=== PATIENT | female | born 1990 ===

== ENCOUNTER 2022-08-01 19:07 | Inpatient (IN) | payer BC, MEDICAID ==
[2022-08-01] MEDS ORDERED: MAG HYDROX/AL HYDROX/SIMETH 30 ML CUP PO PRN (22:48)
[2022-08-01] MEDS ORDERED: MAGNESIUM HYDROXIDE 2,400 MG/10 ML CUP PO PRN (22:48)
[2022-08-01] MEDS ORDERED: ACETAMINOPHEN TAB 325 MG TAB PO PRN (22:48)
[2022-08-01] MEDS ORDERED: diphenhydrAMINE 50 MG/ML 1 ML VIAL IM PRN (22:50)
[2022-08-01] MEDS ORDERED: diphenhydrAMINE 50 MG CAP PO PRN (22:50)
[2022-08-02] MEDS: NICOTINE 14MG/24HR PATCH TRANSDERM SCH (09:39)
--- NOTE | 2022-08-02 14:41 | P.HP ---
Psychiatric H&P - . 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 HPI: Patient presented to the hospital yesterday as a transfer from [facility] in [facility]. Patient was petitioned by her sister and petition stated that patient made statements about jumping off a bridge, apparently has had a "labile mood" at home and also has been having poor sleep for the past few days. Patient was seen taking part in group today and was able to speak to financial underwriter in the office. Patient states that she was petitioned by her sister and her boyfriend because of going through "PTSD and traumas" and also was endorsing going through "huge transitions" in her life. She states that she recently found out that she was in the ER before being transferred to this hospital. She states that she has had several miscarriages in the past and is worried about it. She claims that she isn't having an increase in stress lately and has been feeling "alone". She claims that she had a conversation with her friend and does not know what she said however is denying stating that she was suicidal. She states that her friend told her boyfriend that she wanted to jump off a bridge. She states that she has been dealing with both of her parents being sick and having ongoing health problems. She claims that she is not feeling suicidal today. She claims that she is not getting enough support and help going through "my transition". 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 She was rambling, rationalizing and minimizing her need for hospitalization. She states that she is not interested in taking medications and was also labile and tearful when speaking about her and also being in the hospital. She states that she has been sleeping poorly the past several nights however slept better last night. States that her appetite is fair. Patient denies any suicidal or homicidal ideations intent or plan. At this time patient denies any auditory or visual hallucinations. Patient admits to using no recreational drugs or cigarettes. She states that she does have a history of alcohol abuse however has been sober this year. PAST PSYCHIATRIC HISTORY: Patient states that she has a history of mood disorder and also PTSD and anxiety. Patient denies being on any psychiatric medications. Patient denies any previous psychiatric hospitalizations however does state that she follows up with a therapist since 2019. She claims that she was last psychiatrically hospitalized in February 2018 in [facility] and states that she has been psychiatrically hospitalized a total of 3 times in the past. PMH:currently ALLERGIES: as per EMR CHEMICAL DEPENDENCY HISTORY: as per HPI FAMILY PSYCHIATRIC/SUBSTANCE USE HISTORY: Claims that her father and brother both abuse alcohol SOCIAL HISTORY: Patient was born and raised in [place] [facility], she claims that she completed high school and did a bachelor of social work. 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 She states that she does not have any legal history. She currently lives with her boyfriend and her sister. MENTAL STATUS EXAM: General Appearance: Patient appears to be mildly overweight, several tattoos, wearing glasses, stated age is alert, labile and tearful. Argumentative. Patient appears to have fair hygiene and grooming. Behavior: Patient is seated without any agitated behavior. Labile. Tearful. Speech: Patient's speech is fluent and nonpressured. Rambles. Tangential. Mood/Affect: Patient reports their mood is mainly anxious, affect is congruent Suicidality/Homicidality: Patient denies having any homicidal ideation intent or plan. Denies any suicidal ideations intent or plan Perceptions: Patient denies any visual hallucinations and denies any auditory hallucinations Though content/process: [There is no evidence of any delusional thought content. Thought process is tangential. Rationalizing and minimizing need for treatment. Memory and concentration: AOX3, grossly intact for the purposes of this session. Can spell "WORLD" backwards Judgment and insight: poor STRENGTHS/WEAKNESSES: strength is that patient is resilient. Weakness is that patient has poor judgment and is impulsive INTELLECT: average IMPRESSIONS: Mood disorder, unspecified alcohol use disorder currently in sustained remission PLAN: -Patient is admitted under involuntary status to MHU for stabilization of psychiatric symptoms and safety. Patient has signed medication consent and is placed in patient's chart. A second certification was completed and along with petition will be filed for court. -Medications : Will start patient on Seroquel 25 mg daily at bedtime for mood stabilization/insomnia, can increase this over the weekend if needed. Start Zoloft 50 mg daily for mood/anxiety. -benadryl PRN for agitation/aggression -Patient was informed of the risks, benefits and side effects of the medication and patient verbally consented to taking the medications. Patient signed med consent form and was placed in chart. -Internal Medicine consult to perform medical evaluation and physical. also consulted ORTHOTICS ASSISTANT due to positive test and hx of multiple miscarriages. -NRT - not needed as patient does not smoke -SW on board for discharge planning. Encourage patient to participate in groups to work on coping skills. Will await deferral and court date.
[2022-08-02] MEDS: SERTRALINE 50 MG TAB PO SCH ×2 (16:38→17:17)
[2022-08-02] MEDS ORDERED: QUEtiapine 25 MG TAB PO SCH (21:00)
[2022-08-03 07:10] LABS: Basophils % (A) 0 %; Eosinophils # (A) 0.2 k/uL (0-0.7); Eosinophils % (A) 2 %; HCT 40.6 % (34.0-46.0); HGB 13.4 gm/dL (11.4-16.0); Lymphocytes % (A) 28 %; MCH 25.4 pg (25.0-35.0); MCHC 33.1 g/dL (31.0-37.0); MCV 76.6 fL (80.0-100.0); Mean Platelet Volume 6.1; Microcytosis Slight; Monocytes # (A) 0.6 k/uL (0-1.0); Monocytes % (A) 6 %; Neutrophils # (A) 6.5 k/uL (1.3-7.7); Neutrophils % (A) 62 %; Platelet Count 494 k/uL (150-450); RDW 14.5 % (11.5-15.5); WBC 10.5 k/uL (3.8-10.6)
[2022-08-03 07:22] LABS: ALT 73 U/L (4-34); AST 34 U/L (14-36); African American GFR (CKD) >90 (>60 ml/min/1.73 sqM); Albumin 4.1 g/dL (3.5-5.0); Alkaline Phosphatase 91 U/L (38-126); Anion Gap 9 mmol/L; Blood Urea Nitrogen 11 mg/dL (7-17); Calcium 9.1 mg/dL (8.4-10.2); Carbon Dioxide 27 mmol/L (22-30); Chloride 102 mmol/L (98-107); Glucose 97 mg/dL (74-99); Non-African American GFR(CKD) >90 (>60 ml/min/1.73 sqM); Potassium 3.9 mmol/L (3.5-5.1); Sodium 138 mmol/L (137-145); Total Bilirubin 0.7 mg/dL (0.2-1.3); Total Protein 7.2 g/dL (6.3-8.2)
[2022-08-03] MEDS: SERTRALINE 50 MG TAB PO SCH (09:19)
[2022-08-03] MEDS: NICOTINE 14MG/24HR PATCH TRANSDERM SCH (09:19)
[2022-08-03] MEDS ORDERED: MELATONIN 5 MG TABLET PO PRN (18:31)
--- NOTE | 2022-08-03 18:31 | P.PN ---
Progress Note - Text Progress Note Date: 08/03/22 Interval History: Patient was seen wandering the hallways and was directable and agreeable to speak with food writer. She states that she is happy to speak with a female provider because she has had traumas in the past. She is tangential while describing her history. She states that she had a miscarriage last year and she has been attending grief groups due to this. As result, she says she is happy to have discovered her earlier on in stages recently. She states that while she would like to continue taking current medication, she is a believer in "holistic medicine." She says that she has requested records she would like to keep close tabs on what is being stated. Patient states that she is liking Zoloft and would like to continue it. However, she states that she has become overly sedated into the next day on the Seroquel. She was agreeable with taking melatonin instead. She denies other concerns and reports good appetite. At this time patient denies any suicidal or homicidal ideatios, intent or plan. Patient denies any auditory, visual hallucinations and denies any paranoia or delusions. Patient denies any side effects from the medications and has been compliant with meds. Mental Status Exam: General Appearance: Patient appears to be mildly overweight, several tattoos, wearing glasses, stated age is alert. Patient appears to have fair hygiene and grooming. Behavior: Patient is seated without any agitated behavior. Speech: Patient's speech is fluent and nonpressured. Mood/Affect: Patient reports their mood is mainly anxious, affect is congruent Suicidality/Homicidality: Patient denies having any homicidal ideation intent or plan. Denies any suicidal ideations intent or plan Perceptions: Patient denies any visual hallucinations and denies any auditory hallucinations Though content/process: There is no evidence of any delusional thought content. Thought process is tangential. Rationalizing and minimizing need for treatment. Memory and concentration: AOX3, grossly intact for the purposes of this session. Judgment and insight: poor Assessment Mood disorder, unspecified alcohol use disorder currently in sustained remission PLAN: -Patient is admitted under involuntary status to MHU for stabilization of psychiatric symptoms and safety. Patient has signed medication consent and is placed in patient's chart. A second certification was completed and along with petition will be filed for court. -Medications : Stop Seroquel Start melatonin 5 mg qHS PRN for sleep Continue Zoloft 50 mg daily for mood/anxiety. -benadryl PRN for agitation/aggression -Patient was informed of the risks, benefits and side effects of the medication and patient verbally consented to taking the medications. Patient signed med consent form and was placed in chart. -Internal Medicine consult to perform medical evaluation and physical. also consulted DIRECT CHILL CASTER due to positive test and hx of multiple miscarriages. -NRT - not needed as patient does not smoke -SW on board for discharge planning. Encourage patient to participate in groups to work on coping skills. Will await deferral and court date.
[2022-08-04] MEDS: SERTRALINE 50 MG TAB PO SCH (09:10)
--- NOTE | 2022-08-04 10:24 | P.OBCN ---
History of Present Illness Consult date: 08/04/22 Requesting physician: Luis Magdaleno Reason for consult: other () Chief complaint: History of present illness: This is a 31-year-old 2 para 0010 with a positive test from prior facility. Patient is being seen for mental health concerns and is currently admitted to the mental health unit. Patient states she typically has regular cycles monthly lasting 7 days. Patient states her last menstrual cycle began around July 02 through July 09. Patient denies vaginal bleeding. Patient is known Rh- and she received Mike with her last . Awaiting type and Rh that was drawn last night. Patient is quite concerned as she had a prior miscarriage at around 11 weeks with a twin gestation. Patient states that happened partially 1 year ago. Patient is from the [facility] and states she does have an HUMAN SERVICES SUPERVISOR over there that she has seen consistently. She is currently taking Zoloft 50 mg daily, she is concerned about adding additional medications for mental health concerns given early . Review of Systems Constitutional: Denies chills, Denies fever Cardiovascular: Denies leg edema Respiratory: Denies dyspnea Genitourinary: Reports Past Medical History Past Medical History: Asthma Additional Past Medical History / Comment(s): Hx of 2 miscariages and sports induced asthma History of Any Multi-Drug Resistant Organisms: None Reported Additional Past Surgical History / Comment(s): L lower leg fx with repair Past Anesthesia/Blood Transfusion Reactions: No Reported Reaction Past Psychological History: Bipolar, Depression, PTSD, Schizophrenia Smoking Status: Vaper Past Alcohol Use History: Occasional Past Drug Use History: Marijuana Additional Drug Use History / Comment(s): Uses marijuana occassionally Medications and Allergies Home Medications Medication Instructions Recorded Confirmed Type No Known Home Medications 08/02/22 08/02/22 History Allergies Allergy/AdvReac Type Severity Reaction Status Date / Time No Known Allergies Allergy Verified 08/02/22 03:29 Exam Osteopathic Statement: *. No significant issues noted on an osteopathic structural exam other than those noted in the History and Physical/Consult. Intake and Output 08/03/22 08/04/22 08/04/22 22:59 06:59 14:59 Other: Weight 100 kg Limited exam is done, consultation done in a visitation room, patient appears in no acute distress, breathing appears nonlabored, patient does not appear to be an any discomfort Results Result Diagrams: 05/20/23 06:48 08/03/22 06:48 Assessment and Plan (1) Current Visit: Yes Status: Acute Code(s): Z34.90 - ENCNTR FOR SUPRVSN OF NORMAL , UNSP, UNSP TRIMESTER SNOMED Code(s): 10493450 (2) H/O spontaneous , currently Current Visit: Yes Status: Acute Code(s): O09.299 - SUPRVSN OF PREG W POOR REPRODCTV OR OBSTET HISTORY, UNSP TRI SNOMED Code(s): 528240499 (3) Rh negative status during Current Visit: Yes Status: Acute Code(s): O26.899 - OTH RELATED CONDITIONS, UNSPECIFIED TRIMESTER; Z67.91 - UNSPECIFIED BLOOD TYPE, RH NEGATIVE SNOMED Code(s): 548912640 Plan: 31-year-old , quantitative beta hCG was drawn last evening, 248. Patient states she does have Rh- blood type. We will repeat quantitative beta hCG tomorrow. Discussed with patient levels need to be significant highly higher to be able to visualize heart tones on ultrasound, she states understanding. We will follow labs, she is very desirous of knowing results once they come in tomorrow. We'll consider ultrasound when levels are appropriate if she is still in the hospital at that time. I typically would like them to be around 10,000 to get an accurate dating US, and be able to see heart tones. Plan is discussed with patient and questions are answered. She is understandably nervous/anxious given her prior loss 1 year ago.
--- NOTE | 2022-08-04 16:02 | P.PN ---
Progress Note - Text Progress Note Date: 08/04/22 Interval History: Patient was seen wandering the hallways and was directable and agreeable to speak with business writer. She states that she is happy to speak with a female provider because she has had traumas in the past. She also states that she prefers to not talk in the interview room and prefers to be talking in her own room. Patient continues to be somewhat tangential and states that she is talkative but baseline. She reports that her mood is "good ". She states that she has been attending groups but that she was irritated when she was cut off well in group today. She reports having some difficulty sleeping without the melatonin but says that she slept well after receiving the melatonin. Discussed recommendation of Lamictal but patient states that she is currently hesitant with this due to her current . Discussed that among the mood stabilizers, Lamictal is relatively safer during the . Patient was also seen by FORK TRUCK DRIVER today. Discussed signs and symptoms of jazmin at length with patient although patient continued to interrupt with tangential story lines about her to personal conflict with her . At this time patient denies any suicidal or homicidal ideatios, intent or plan. Patient denies any auditory, visual hallucinations and denies any paranoia or delusions. Patient denies any side effects from the medications and has been compliant with meds. Mental Status Exam: General Appearance: Patient appears to be mildly overweight, several tattoos, wearing glasses, stated age is alert. Patient appears to have fair hygiene and grooming. Behavior: Patient is seated without any agitated behavior. Speech: Patient's speech is fluent and nonpressured. hyperverbal Mood/Affect: Patient reports their mood is mainly anxious, affect is congruent Suicidality/Homicidality: Patient denies having any homicidal ideation intent or plan. Denies any suicidal ideations intent or plan Perceptions: Patient denies any visual hallucinations and denies any auditory hallucinations Though content/process: There is no evidence of any delusional thought content. Thought process is tangential. Rationalizing and minimizing need for treatment. Memory and concentration: AOX3, grossly intact for the purposes of this session. Judgment and insight: poor Assessment Depressive disorder, mixed Alcohol use disorder currently in sustained remission PLAN: -Patient is admitted under involuntary status to MHU for stabilization of psychiatric symptoms and safety. Patient has signed medication consent and is placed in patient's chart. A second certification was completed and along with petition will be filed for court. -Medications : melatonin 5 mg qHS PRN for sleep Continue Zoloft 50 mg daily for mood/anxiety. Consider Lamictal for mood stabilization although patient is currently hesitant with this. Will provide handout on it from [facility] -benadryl PRN for agitation/aggression -Patient was informed of the risks, benefits and side effects of the medication and patient verbally consented to taking the medications. Patient signed med consent form and was placed in chart. -Internal Medicine consult to perform medical evaluation and physical. also consulted ORACLE DATA WAREHOUSE DEVELOPER due to positive test and hx of multiple miscarriages. -NRT - not needed as patient does not smoke -SW on board for discharge planning. Encourage patient to participate in groups to work on coping skills. Will await deferral and court date.
[2022-08-05] MEDS: SERTRALINE 50 MG TAB PO SCH (07:18)
--- NOTE | 2022-08-05 11:12 | P.PN ---
Progress Note - Text Progress Note Date: 08/05/22 Pt is currently on being treated on the MHU, she is early and was transferred from [facility]. she had a quantative BHC on 08/03 243 and repeated today. It did rise appropriately to 521. I did attempt to call with results so she know this is an adequate rise in her hormone level. No one was available to answer the phone as it went unanswered. I will attempt to call again so the patient does get the results. This level is to low to obtain an US, she is aware of this given her early gestational age. It should rise sufficiently in 2 weeks so that she would be able to have a viability US obtained. [facility] it could be done at the hospital. She is known RH neg, and if she has any bleeding rhogam should be administered. I did request a type and RH be obtained She does have an OB on [address] in addition, she cared for her with her recent miscarriage. Will follow along, please reach out with any further concerns regarding this patient
--- NOTE | 2022-08-05 11:22 | P.PN ---
Progress Note - Text Progress Note Date: 08/05/22 Interval Hx: Patient was seen today for psychiatric follow up. Patient was able to speak to loan underwriter in the office today however did request a female dermatologist and dermatopathologist which was present today. Patient continues to ramble at times, hyperverbal. She states that she is doing "fine" however continues to have racing thoughts, multiple complaints. She continues to have multiple concerns about her medications and states that she is worried about the baby's health. She also did state that she is worried about the acuity of the inpatient psychiatric unit and has been mainly staying in her room. She claims that she is not having any depression at this time, continues to have poor sleep at nighttime. She states that she took the Seroquel and felt "too sedated early" and we spoke about other alternatives of medications however patient is agreeable to try the Seroquel again tonight at a low dose however once they get later on in the nighttime and go straight to sleep. She states that she is speaking with her family over the phone who have been supportive to her. She states that she also did speak with the DISPUTE RESOLUTION ANALYST physician over the weekend. At this time she is denying any auditory or visual hallucinations. She is denying any suicidal or homicidal ideations intent or plan. Mental status examination: General Appearance: Patient appears to be mildly overweight, several tattoos, wearing glasses, stated age is alert, labile. less Argumentative. Patient appears to have fair hygiene and grooming. Behavior: Patient is seated without any agitated behavior. not Tearful. Speech: Patient's speech is fluent and nonpressured. Rambles. Tangential. Mood/Affect: Patient reports their mood is mainly anxious, affect is congruent Suicidality/Homicidality: Patient denies having any homicidal ideation intent or plan. Denies any suicidal ideations intent or plan Perceptions: Patient denies any visual hallucinations and denies any auditory hallucinations Though content/process: [There is no evidence of any delusional thought content. Thought process is tangential. Rationalizing and minimizing Memory and concentration: AOX3, grossly intact for the purposes of this session Judgment and insight: poor, mildly improving. IMPRESSIONS: Mood disorder, unspecified alcohol use disorder currently in sustained remission PLAN: -Patient is admitted under involuntary status to MHU for stabilization of psychiatric symptoms and safety. Patient has signed medication consent and is placed in patient's chart. -Medications : restart Seroquel 25 mg daily at bedtime for mood stabilization/insomnia however to be dosed later on at nighttime at 10pm before patient sleeps, continue with Zoloft 50 mg daily for mood/anxiety. spoke with patient about weighing the risk/benefit of medications during her and she was agreeable to take the medication -benadryl PRN for agitation/aggression -NRT - not needed as patient does not smoke -SW on board for discharge planning. Encourage patient to participate in groups to work on coping skills. Will await deferral and court date.
[2022-08-05] MEDS: QUEtiapine 25 MG TAB PO SCH (21:56)
[2022-08-06] MEDS: SERTRALINE 50 MG TAB PO SCH (09:20)
[2022-08-06] MEDS ORDERED: QUEtiapine 25 MG TAB PO PRN (11:40)
--- NOTE | 2022-08-06 12:06 | P.PN ---
Progress Note - Text Progress Note Date: 08/06/22 Interval Hx: Patient was seen today for psychiatric follow up as she was wandering the hallways. She continues to be hyperverbal rambling at times. She was complaining about several other patients on the unit and states that "they all don't like me" and states that "one of them wanted to kill me and my baby". She continues to be difficult to redirect during conversation. She was displaying racing thoughts and flight of ideas. We spoke about changing her medications which she was okay with discontinuing the Zoloft. She states that she slept very well last night with the Seroquel and once again continue taking it. We spoke about adding Seroquel as a when necessary which she is okay with during the day. She states that she is speaking with her family over the phone who have been supportive to her. She states that she also did speak with the AUTOMATIC EDGER physician and is waiting to speak with her again. At this time she is denying any auditory or visual hallucinations. She is denying any suicidal or homicidal ideations intent or plan. Mental status examination: General Appearance: Patient appears to be mildly overweight, several tattoos, wearing glasses, stated age is alert, labile. less Argumentative. Patient appears to have fair hygiene and grooming. Behavior: Patient is seated without any agitated behavior. Speech: Patient's speech is fluent and nonpressured. Rambles. Tangential. Mood/Affect: Patient reports their mood is mainly anxious, affect is congruent Suicidality/Homicidality: Patient denies having any homicidal ideation intent or plan. Denies any suicidal ideations intent or plan Perceptions: Patient denies any visual hallucinations and denies any auditory hallucinations Though content/process: [There is no evidence of any delusional thought content. Racing thoughts, flight of ideas, Thought process is tangential. Memory and concentration: AOX3, grossly intact for the purposes of this session Judgment and insight: poor, mildly improving. IMPRESSIONS: Mood disorder, unspecified alcohol use disorder currently in sustained remission PLAN: -Patient is admitted under involuntary status to MHU for stabilization of psychiatric symptoms and safety. Patient has signed medication consent and is placed in patient's chart. -Medications : Seroquel 25 mg for mood stabilization/insomnia, added prn dosing 25 mg bid prn for agitation. d/c Zoloft due to likelihood of elevating patients mood. will re-evaluate if needed to restart at a later time but at a smaller dose. -benadryl PRN for agitation/aggression -NRT - not needed as patient does not smoke -SW on board for discharge planning. Encourage patient to participate in groups to work on coping skills. Will await deferral and court date.
[2022-08-06] MEDS: QUEtiapine 25 MG TAB PO SCH ×2 (21:06→23:01)
[2022-08-07 05:37] VITALS: BP 116/54; PULSE 104; RESP 16; TEMP 97.4
[2022-08-07] MEDS ORDERED: SERTRALINE 25 MG TAB PO SCH (09:00)
--- NOTE | 2022-08-07 10:06 | P.PN ---
Progress Note - Text Progress Note Date: 08/07/22 Interval Hx: Patient was seen today for psychiatric follow up as she was near the nurse's desk speaking with other patients. Patient appeared to be more directable during conversation today, less labile in her mood. She states that she is feeling "okay today". She claims that she was confused about the dosing of the Seroquel and states that she thought it was an option to take it and took the melatonin instead. She made complaints about the nurse not knowing either. She claims that tonight she will be taking the Seroquel and show card writer explained the importance of it to help stabilize her mood and also help with sleep, patient verbally understood and agreed. She states that she is trusting people more on the unit and appears to have an improvement in her rambling and also her flight of ideas. She was also more appropriately during conversation today. We spoke more about discharge planning and she would like to go back to her because residence with her boyfriend. She claims that her appetite is fair at this time. She states that she is speaking with her family over the phone who have been supportive to her. At this time she is denying any auditory or visual hallucinations. She is denying any suicidal or homicidal ideations intent or plan. Mental status examination: General Appearance: Patient appears to be mildly overweight, several tattoos, wearing glasses, stated age is alert, less labile. more cooperative today Patient appears to have fair hygiene and grooming. Behavior: Patient is seated without any agitated behavior. More cooperative today. Speech: Patient's speech is fluent and nonpressured. Rambles less Mood/Affect: Patient reports their mood is "good", affect is congruent Suicidality/Homicidality: Patient denies having any homicidal ideation intent or plan. Denies any suicidal ideations intent or plan Perceptions: Patient denies any visual hallucinations and denies any auditory hallucinations Though content/process: [There is no evidence of any delusional thought content. Less racing thoughts, more goal oriented. Memory and concentration: AOX3, grossly intact for the purposes of this session Judgment and insight: mildly improving. IMPRESSIONS: Mood disorder, unspecified alcohol use disorder currently in sustained remission PLAN: -Patient is admitted under involuntary status to [facility] for stabilization of psychiatric symptoms and safety. Patient has signed medication consent and is placed in patient's chart. -Medications : Continue Scheduled Seroquel 25 mg for mood stabilization/insomnia (discussed the importance of taking this) with option for prn dosing 12.5-25 mg bid prn for agitation, melatonin 5 mg qhs prn for sleep -benadryl PRN for agitation/aggression -NRT - not needed as patient does not smoke -SW on board for discharge planning. Encourage patient to participate in groups to work on coping skills. patient signed deferral and is agreeable to continue on with treatment. SW to contact pts family today and prepare for likely discharge tomorrow if patient is doing better
[2022-08-07] MEDS: QUEtiapine 25 MG TAB PO SCH (23:03)
--- NOTE | 2022-08-08 11:32 | P.DS ---
Providers Date of admission: 08/02/22 01:02 Expected date of discharge: 08/08/22 Attending physician: Luis Magdaleno MD Consults: 08/01/22 22:48 Consult Physician Routine Consulting Provider: Paulette Cancino Consult Reason/Comments: w/history of multiple miscarriages Do you want consulting provider notified?: Yes Primary care physician: Stated None - Discharge Diagnosis(es) (1) Mood disorder Current Visit: Yes Status: Acute Priority: High (2) Alcohol use disorder, moderate, in sustained remission Current Visit: Yes Status: Acute Priority: Low Hospital Course: Admission HPI: Admission note was completed by data analyst report writer "Patient is a 31-year-old female, currently lives with her boyfriend and her sister, 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 Patient presented to the hospital yesterday as a transfer [facility]. Patient was petitioned by her sister and petition stated that patient made statements about jumping off a bridge, apparently has had a "labile mood" at home and also has been having poor sleep for the past few days. Patient was seen taking part in group today and was able to speak to data analyst report writer in the office. Patient states that she was petitioned by her sister and her boyfriend because of going through "PTSD and traumas" and also was endorsing going through "huge transitions" in her life. She states that she recently found out that she was in the ER before being transferred to this hospital. She states that she has had several miscarriages in the past and is worried about it. She claims that she isn't having an increase in stress lately and has been feeling "alone". She claims that she had a conversation with her friend and does not know what she said however is denying stating that she was suicidal. She states that her friend told her boyfriend that she wanted to jump off a bridge. She states that she has been dealing with both of her parents being sick and having ongoing health problems. She claims that she is not feeling suicidal today. She claims that she is not getting enough support and help going through "my transition". 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 She was rambling, rationalizing and minimizing her need for hospitalization. She states that she is not interested in taking medications and was also labile and tearful when speaking about her and also being in the hospital. She states that she has been sleeping poorly the past several nights however slept better last night. States that her appetite is fair. Patient denies any suicidal or homicidal ideations intent or plan. At this time patient denies any auditory or visual hallucinations. Patient admits to using no recreational drugs or cigarettes. She states that she does have a history of alcohol abuse however has been sober this year." Hospital course: Upon admission to the unit patient was admitted involuntarily on a petition and certificate and a second certificate was completed and faxed with the courts. Patient ended up signing a deferral with the document review attorney and agreeing to treatment. Patient got along well with other patients on the unit and followed unit protocol. Patient was compliant with the medications and denied any side effects throughout hospital course. Patient was started on Zoloft however was making her feel more elevated in terms of her mood and anxious, more hyperverbal, it was discontinued as it was liking likely causing her to feel more manic. Patient was placed on only Seroquel 25 mg daily at bedtime for mood stabilization/insomnia. Patient spoke of her stressors and engaged in therapy both group and individual. Patient was also seen by medical team for history and physical exam. Patient was seen by SYSTEM ADMINISTRATION ADVISOR for consultation due to her recent positive test and also multiple miscarriages in the past. Patient had beta-hCG levels drawn to times which showed increasing number. Recommendation was to continue follow-up with her SYSTEM ADMINISTRATION ADVISOR as an outpatient and have an ultrasound completed to check for viability of the . Throughout the course of the hospitalization patient gradually improved with regards to mood, anxiety, sleep and became more future oriented with improved insight and judgment. On the day of discharge patient denied any suicidal or homicidal ideations intent or plan denied any auditory or visual hallucinations. Patient endorsed wanting to live for her and her family. The patient denied any access to guns or weapons. Patient denied any paranoia and did not endorse any delusions. Patient does not have a significant history of substance abuse and was counseled on abstaining from all substances including alcohol and marijuana. Patient was also counseled on the medications and need for regular compliance and was encouraged to follow-up with their outpatient appointment for mental health and also for primary care. Prior to discharge a family meeting will be arranged by social media developer to answer any questions and ensure safety upon discharge. Mental status exam: General Appearance: Patient appears to be mildly overweight, wearing glasses, stated age is alert, pleasant, and cooperative. Patient is in no acute distress and has improved hygiene and grooming Behavior: Patient is calmly seated without any agitated behavior. Speech: Patient's speech is fluent and nonpressured. Mood/Affect: Patient reports their mood is "good", affect is congruent and euthymic. Suicidality/Homicidality: Patient denies having any suicidal or homicidal ideation intent or plan. Perceptions: Patient denies any auditory or visual hallucinations. Though content/process: There is no evidence of any delusional thought content and thought process is linear and goal-directed. more future oriented Memory and concentration: AOX3, grossly intact for the purposes of this session. Can spell "WORLD" backwards correctly. Judgment and insight: improved with guarded prognosis Impression: Mood disorder unspecified, r/o bipolar disorder Alcohol use disorder, moderate, in sustained remission Plan: -Continue with discharge today as patient has improved and stabilized psychiatrically and is not currently an imminent threat to herself and/or others. Patient will remain at chronically elevated risk for harm to self and/or others due to her impulsivity. -Continue medications: Seroquel 25 mg daily at bedtime for mood stabilization/insomnia. -Patient was counseled on the need for medication compliance and appropriate follow-up at mental health and also primary care for medical issues. Patient verbalized understanding and agreed. -Social work to arrange for and conduct family meeting to ensure safety upon discharge and answer any questions/concerns. Social work also to arrange for patients follow up appointments for psychiatric care along with follow up with primary care provider. patient will also f/u with her outpatient obgyn for US and following of her . -Patient counseled on abstaining from recreational drugs and marijuana and alcohol. Was informed/educated on the adverse effects on their physical and mental health. Patient verbally agreed and understood. -Patient was instructed to return to the hospital or seek immediate medical care if their psychiatric or medical symptoms do worsen or reoccur. Allergies Allergy/AdvReac Type Severity Reaction Status Date / Time No Known Allergies Allergy Verified 08/02/22 03:29 Laboratory Results WBC 10.5 k/uL (3.8-10.6) 08/03/22 06:48 RBC 5.30 m/uL (3.80-5.40) 08/03/22 06:48 Hgb 13.4 gm/dL (11.4-16.0) 08/03/22 06:48 Hct 40.6 % (34.0-46.0) 08/03/22 06:48 MCV 76.6 fL (80.0-100.0) L 08/03/22 06:48 MCH 25.4 pg (25.0-35.0) 08/03/22 06:48 MCHC 33.1 g/dL (31.0-37.0) 08/03/22 06:48 RDW 14.5 % (11.5-15.5) 08/03/22 06:48 Plt Count 494 k/uL (150-450) H 08/03/22 06:48 MPV 6.1 08/03/22 06:48 Neutrophils % 62 % 08/03/22 06:48 Lymphocytes % 28 % 08/03/22 06:48 Monocytes % 6 % 08/03/22 06:48 Eosinophils % 2 % 08/03/22 06:48 Basophils % 0 % 08/03/22 06:48 Neutrophils # 6.5 k/uL (1.3-7.7) 08/03/22 06:48 Lymphocytes # 3.0 k/uL (1.0-4.8) 08/03/22 06:48 Monocytes # 0.6 k/uL (0-1.0) 08/03/22 06:48 Eosinophils # 0.2 k/uL (0-0.7) 08/03/22 06:48 Basophils # 0.0 k/uL (0-0.2) 08/03/22 06:48 Microcytosis Slight 08/03/22 06:48 Sodium 138 mmol/L (137-145) 08/03/22 06:48 Potassium 3.9 mmol/L (3.5-5.1) 08/03/22 06:48 Chloride 102 mmol/L (98-107) 08/03/22 06:48 Carbon Dioxide 27 mmol/L (22-30) 08/03/22 06:48 Anion Gap 9 mmol/L 08/03/22 06:48 BUN 11 mg/dL (7-17) 08/03/22 06:48 Creatinine 0.63 mg/dL (0.52-1.04) 08/03/22 06:48 Est GFR (CKD-EPI)AfAm >90 (>60 ml/min/1.73 sqM) 08/03/22 06:48 Est GFR (CKD-EPI)NonAf >90 (>60 ml/min/1.73 sqM) 08/03/22 06:48 Glucose 97 mg/dL (74-99) 08/03/22 06:48 Calcium 9.1 mg/dL (8.4-10.2) 08/03/22 06:48 Total Bilirubin 0.7 mg/dL (0.2-1.3) 08/03/22 06:48 AST 34 U/L (14-36) 08/03/22 06:48 ALT 73 U/L (4-34) H 08/03/22 06:48 Alkaline Phosphatase 91 U/L (38-126) 08/03/22 06:48 Total Protein 7.2 g/dL (6.3-8.2) 08/03/22 06:48 Albumin 4.1 g/dL (3.5-5.0) 08/03/22 06:48 HCG, Quant 521.9 mIU/mL 08/05/22 06:41 Blood Type B Negative 08/03/22 23:09 Blood Type Confirm B Negative 08/03/22 23:07 Blood Type Recheck No Previous Record 08/03/22 23:09 Bld Type Recheck Status CABO Indicated 08/03/22 23:09 Antibody Screen NEGATIVE 08/03/22 23:09 Spec Expiration Date 08/06/2022230808/03/22 23:09 Vital Signs Temp 97.4 F L 08/07/22 02:10 Pulse 104 H 08/07/22 02:10 Resp 16 08/07/22 02:10 BP 116/54 08/07/22 02:10 Pulse Ox 99 08/05/22 00:49 FiO2 Patient Condition at Discharge: Stable Plan - Discharge Summary Discharge Rx Participant: Yes New Discharge Prescriptions: New QUEtiapine [SEROquel] 25 mg PO 2200 30 Days #30 tab Discharge Medication List QUEtiapine [SEROquel] 25 mg PO 2200 30 Days #30 tab 08/08/22 [Rx] Follow up Appointment(s)/Referral(s): [facility] [Other] - 08/15/22 9:30 am (with June) Activity/Diet/Wound Care/Special Instructions: Avoid the use of street drugs and alcohol. Take all medications as prescribed. When you are in need of refills on your medications, please contact your medical provider and/or outpatient psychiatrist to have this done. Please go to scheduled outpatient appointments for aftercare treatment. If symptoms return or become worse, call the crisis line at and/or go to the nearest emergency room for evaluation. Discharge Disposition: HOME SELF-CARE
== END 2022-08-08 14:07 | disposition home or self-care (01) | DRG 881 ==
LOC: 3MHU 08-02 01:02
PROVIDERS: ADMIT Psychiatry & Neurology Psychiatry; ATTEND Psychiatry & Neurology Psychiatry
DX: F32.A Depression, unspecified (principal); F10.21 Alcohol dependence, in remission; F43.10 Post-traumatic stress disorder, unspecified; N96 Recurrent pregnancy loss; F17.290 Nicotine dependence, other tobacco product, uncomplicated; G47.00 Insomnia, unspecified; Z33.1 Pregnant state, incidental; Z63.79 Other stressful life events affecting family and household; Z63.72 Alcoholism and drug addiction in family; Z79.899 Other long term (current) drug therapy; Z28.311 Partially vaccinated for COVID-19; Z67.21 Type B blood, Rh negative
CPT/HCPCS: 80053; 84702; 85025; 86850; 86900; 86901